=== PATIENT | female | born 1990 | race African-American/Black ===

== ENCOUNTER 2023-08-31 07:55 | Inpatient (IN) | payer OTHER ==
[2023-08-31] MEDS: ELECTROLYTE-148 SOLN 1,000 ML IV SCH (09:00)
[2023-08-31 09:35] VITALS: BMI 43.9
[2023-08-31] MEDS: CITRIC ACID/SODIUM CITRATE 30 ML UNIT-DOSE CUP PO ONE (10:05)
[2023-08-31] MEDS ORDERED: ONDANSETRON 4 MG/2 ML VIAL IVPUSH PRN (10:48)
[2023-08-31] MEDS ORDERED: ONDANSETRON 4 MG/2 ML VIAL ONE (11:42)
[2023-08-31] MEDS ORDERED: ceFAZolin SODIUM 1 GM VIAL ONE (11:42)
[2023-08-31] MEDS ORDERED: DEXAMETHASONE SOD PHOSPHATE 4 MG/1 ML VIAL ONE (11:43)
[2023-08-31] MEDS ORDERED: OXYTOCIN 10 UNITS/ML VIAL ONE ×3 (11:54→12:40)
[2023-08-31] MEDS ORDERED: METHYLERGONOVINE MALEATE 0.2 MG/1 ML AMP IM PRN ×2 (12:31→13:34)
[2023-08-31 12:59] LABS: CORD BASE EXCESS -1.3 mmol/L (0-2); CORD HCO3 24.8 mmHg (20-29); CORD PCO2 46.2 mmHg (30-78); CORD pH 7.347 (7.14-7.44)
[2023-08-31 13:01] LABS: CORD HCO3 25.6 mmHg (20-29); CORD PCO2 67.9 mmHg (30-78); CORD pH 7.195 (7.14-7.44)
[2023-08-31] MEDS ORDERED: ACETAMINOPHEN 325 MG TABLET (FP) PO PRN (13:34)
[2023-08-31] MEDS ORDERED: IBUPROFEN 600 MG TABLET (FP) PO PRN (13:34)
[2023-08-31] MEDS ORDERED: OXYTOCIN 20 UNITS in 0.9% NS 20 UNIT/1,000 ML INFUS.BAG IV ONE (14:42)
[2023-08-31] MEDS: OXYTOCIN 20 UNITS in 0.9% NS 20 UNIT/1,000 ML INFUS.BAG IV SCH ×2 (14:45→23:10)
[2023-09-01] MEDS ORDERED: oxyCODONE HCL 5 MG TABLET PO PRN ×3 (00:31→01:34)
[2023-09-01] MEDS: IBUPROFEN 600 MG TABLET (FP) PO PRN (06:59)
[2023-09-01 07:26] LABS: BASO % 0.1 % (0-2.0); EOS % 0.4 % (0-4.5); HEMATOCRIT 33.3 % (32.4-45.2); HEMOGLOBIN 11.1 GM/dL (10.7-15.3); LYMPH % 21.8 % (8-40); MCH 26.3 pg (25.7-33.7); MCHC 33.4 g/dl (32.0-36.0); MEAN CELL VOLUME 78.7 fl (80-96); MEAN PLT VOLUME 8.3 fl (7.5-11.1); MONO % 5.2 % (3.8-10.2); NEUT % 72.5 % (42.8-82.8); PLATELET COUNT 224 10^3/uL (134-434); RBC 4.23 M/mm3 (3.60-5.2); RDW 14.3 % (11.6-15.6); WHITE BLOOD COUNT 13.7 K/mm3 (4.0-10.0)
[2023-09-01] MEDS: PRENATAL VITAMINS W/ FOLIC ACID TABLET (FP) PO SCH (09:25)
[2023-09-01] MEDS: ACETAMINOPHEN 325 MG TABLET (FP) PO PRN (09:25)
[2023-09-01] MEDS ORDERED: BISACODYL 10 MG SUPP.RECT RC PRN (12:31)
[2023-09-01] MEDS: oxyCODONE HCL 5 MG TABLET PO PRN (23:25)
[2023-09-01] MEDS: SIMETHICONE 80 MG TAB.CHEW (FP) PO PRN (23:25)
[2023-09-02 22:18] VITALS: RESP 18
[2023-09-03 07:34] LABS: BASO % 0.2 % (0-2.0); EOS % 3.2 % (0-4.5); HEMATOCRIT 33.7 % (32.4-45.2); LYMPH % 33.6 % (8-40); MCH 26.1 pg (25.7-33.7); MCHC 32.7 g/dl (32.0-36.0); MEAN CELL VOLUME 79.9 fl (80-96); MEAN PLT VOLUME 8.1 fl (7.5-11.1); MONO % 5.3 % (3.8-10.2); NEUT % 57.7 % (42.8-82.8); PLATELET COUNT 235 10^3/uL (134-434); RBC 4.21 M/mm3 (3.60-5.2); RDW 14.3 % (11.6-15.6); WHITE BLOOD COUNT 8.4 K/mm3 (4.0-10.0)
[2023-09-03 09:22] VITALS: BP 122/77; PULSE 81; TEMP 98
== END 2023-09-03 12:34 | disposition home or self-care (01) | DRG 540 ==
LOC: JLDR 07:55 → J3W 15:01
PROVIDERS: ADMIT Obstetrics & Gynecology; ATTEND Obstetrics & Gynecology
PROC: 10D00Z1 Extraction of Products of Conception, Low, Open Approach (ICD-10-PCS; principal; 2023-08-31)
DX: O34.219 Maternal care for unspecified type scar from previous cesarean delivery (principal); Z3A.39 39 weeks gestation of pregnancy; Z37.0 Single live birth
CPT/HCPCS: 36415; 36600; 59409; 80053; 82803; 85025; 85027; 85610; 85730; 86780; 86803; 86850; 86900; 86901; 87389; 88307-TC